=== PATIENT | male | born 1950 | race African-American/Black ===

== ENCOUNTER 2024-04-21 15:40 | Emergency (ER) | payer OTHER, SELFPAY ==
[2024-04-21] MEDS ORDERED: Acetaminophen 325 MG TAB ONE (16:08)
== END 2024-04-21 17:40 | disposition home or self-care (01) ==
LOC: CSHERS 15:40
DX: R51.9 Headache, unspecified (principal); I10 Essential (primary) hypertension; F17.220 Nicotine dependence, chewing tobacco, uncomplicated
CPT/HCPCS: 70450